=== PATIENT | female | born 1990 | race Caucasian/White ===

== ENCOUNTER 2017-01-21 17:32 | Emergency (ER) | payer OTHER ==
[2017-01-21 17:41] VITALS: BP 147/88; PULSE 89; RESP 16; TEMP 98.6; O2SAT 97
--- NOTE | 2017-01-21 18:12 | UCPHY ---
H & P Time Seen by Provider: 01/21/17 17:53 Patient Type: New HPI/ROS: This patient presents with a chief complaint of mid right-sided back pain which began several hours ago while she was lifting and twisting. The pain was sudden in onset. She denies any radiation of the pain to extremities and denies any numbness, tingling or motor weakness. she denies any bowel or bladder dysfunction. She denies any abdominal pain nausea, vomiting. She also denies any shortness of breath. The pain is worse when she moves. She has had mild episodes of back pain in the past which were never this severe nor did they last more than 2 or 3 days. Smoking Status: Former smoker Physical Exam: GENERAL: Well-appearing, well-nourished and in no acute distress except with moving when she appears to be very uncomfortable. LUNGS: Breath sounds clear to auscultation bilaterally and equal. No wheezes rales or rhonchi. HEART: Regular rate and rhythm without murmurs, rubs or gallops. ABDOMEN: Soft, nontender EXTREMITIES: Normal range of motion, no pitting or edema. No clubbing or cyanosis. NEUROLOGICAL: Cranial nerves II through XII grossly intact. Normal speech, normal gait. No motor weakness or sensory loss in the lower extremities PSYCH: Normal mood, normal affect. SKIN: Warm, dry, normal turgor, no visible rashes or lesions. Back: There is tenderness on the right involving the lower thoracic and upper lumbar areas involving the CVA area. Constitutional: Initial Vital Signs Temperature (C) 37 C 01/21/17 17:33 Heart Rate 89 01/21/17 17:33 Respiratory Rate 16 01/21/17 17:33 Blood Pressure 147/88 H 01/21/17 17:33 O2 Sat (%) 97 01/21/17 17:33 O2 Delivery Mode Room Air Allergies/Adverse Reactions: No Known Allergies Allergy (Verified 01/21/17 17:39) Home Medications: Medication Instructions Recorded CYCLOBENZAPRINE HCL [Flexeril] 5 mg PO TIDPRN PRN #12 tab 01/21/17 Hydrocodone/APAP 5/325 [Slater 5 mg PO Q4-6PRN PRN #10 tab 01/21/17 5/325 (*)] Medical Decision Making Differential Diagnosis: I do not believe that this patient has a intrathoracic problem such as a pneumothorax nor do I believe she has urinary tract infection. All information points to a mid back strain. Departure - Departure Disposition: Home, Routine, Self-Care Clinical Impression: Back strain Qualifiers: Encounter type: initial encounter Qualified Code(s): S39.012A - Strain of muscle, fascia and tendon of lower back, initial encounter Condition: Good Instructions: Thoracic Back Strain (ED) Additional Instructions: If your symptoms persist more than 10 days you should be re-evaluated. If you feel that your symptoms are worsening or if anything changes you should be seen sooner. Apply ice to the area of pain today and tomorrow and then began applying warm compresses several times daily on Monday. Adult Pain & Fever Control: We recommend Acetaminophen (Tylenol) and Ibuprofen (Motrin, Advil) for pain and fever control. When fever is high or pain severe, both drugs can be used at the same time, but at different intervals. Please note the time differences. Your dose is: Acetaminophen [650]mg every 4 to 6 hours ibuprofen [600]mg every [6] hours with food OR naproxen Sodium (Aleve) [440]mg every 12 hours. Note: do not take Acetaminophen with Hydrocodone (Vicodin, Lortab) or Oxycodone (Percocet). These medications also contain Acetaminophen. No more than 3000 mg of Acetaminophen should be taken in 24 hours (for an adult) . The maximal dose of ibuprofen that it is safe in a 24-hour period is 2400 mg. You may take 400 mg every 4 hours, 600 mg every 6 hours or 800 mg every 8 hours safely. Referrals: NONE *PRIMARY CARE P,. [Primary Care Provider] - As per Instructions Prescriptions: CYCLOBENZAPRINE HCL [Flexeril] 5 mg PO TIDPRN PRN #12 tab PRN Reason: back pain Hydrocodone/APAP 5/325 [Slater 5/325 (*)] 5 mg PO Q4-6PRN PRN #10 tab PRN Reason: pain - PQRS PQRS Measurement: Not applicable
[2017-01-21] MEDS ORDERED: HYDROCOD/APAP 5/325 PREPACK#6 BTL TAKEHOME ONE (18:30)
[2017-01-21] MEDS ORDERED: CYCLOBENZAPRINE 10MG PREPACK#3 BTL TAKEHOME ONE (18:31)
== END 2017-01-21 18:35 | disposition home or self-care (01) ==
LOC: CED 17:32
DX: S39.012A Strain of muscle, fascia and tendon of lower back, initial encounter (principal); Z87.891 Personal history of nicotine dependence
CPT/HCPCS: 99203-PO; G0463-PO

== ENCOUNTER → 2017-01-25 | Outpatient (CLI) | payer OTHER | LOC: CIMAGING 11:46 | PROVIDERS: ATTEND Physical Medicine & Rehabilitation | DX: M41.84 Other forms of scoliosis, thoracic region (principal); M47.894 Other spondylosis, thoracic region; M51.34 Other intervertebral disc degeneration, thoracic region | CPT/HCPCS: 72072-PO ==